=== PATIENT | female | born 1985 | race Caucasian/White ===

== ENCOUNTER 2016-06-23 16:49 | Emergency (ER) | payer OTHER ==
[2016-06-23 17:00] VITALS: BP 132/81; PULSE 70; RESP 16; TEMP 98.2; O2SAT 99
[2016-06-23] MEDS ORDERED: IBUPROFEN 600 MG TAB PO ONE (17:12)
--- NOTE | 2016-06-23 17:13 | EDPHY ---
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 Did not radiate. Not associated with weakness or numbness in legs. She did not fall and now feels better. No urinary symptoms. REVIEW OF SYSTEMS: Negative except as above PAST MEDICAL HISTORY: Depression and hypercholesterolemia Social history: [employer] nurse General Appearance: Alert and conversant, cooperative. No midline spinal tenderness. Some left lumbar paraspinal muscle tenderness. Normal active and passive rotation of the torso. She can bend forward at the waist and touch her toes without obvious discomfort. Straight leg raising negative bilaterally. Bilateral patellar reflexes 2+ symmetric, toes downgoing, extensor hallucis 5/5 bilateral. Emergency Department course/MDM: Patient presents with low back strain without red flags to suggest she is at risk for spinal cord injury or neurologic or neurosurgical emergency or fracture. Request oral ibuprofen. Symptoms are minimal at this time and she has good range of motion on exam and I think it is reasonable for her to return to work as she is requesting. Smoking Status: Former smoker Constitutional: Initial Vital Signs Temperature (C) 36.8 C 06/23/16 16:54 Heart Rate 70 06/23/16 16:54 Respiratory Rate 16 06/23/16 16:54 Blood Pressure 132/81 H 06/23/16 16:54 O2 Sat (%) 99 06/23/16 16:54 O2 Delivery Mode Room Air Allergies/Adverse Reactions: sulfamethoxazole [From Bactrim] Allergy (Mild, Verified 06/23/16 17:00) Anxiety trimethoprim [From Bactrim] Allergy (Mild, Verified 06/23/16 17:00) Anxiety apisole Allergy (Mild, Uncoded 06/23/16 17:00) Hives Home Medications: Medication Instructions Recorded [place] 3,6,9 Combination No.7 06/23/16 MDM/Departure - Depart Disposition: Home, Routine, Self-Care Clinical Impression: Low back strain Qualifiers: Encounter type: initial encounter Qualified Code(s): S39.012A - Strain of muscle, fascia and tendon of lower back, initial encounter Condition: Good Instructions: Low Back Strain (ED) Referrals: Work Comp Ref/Restrictions [Outside] - As per Instructions
== END 2016-06-23 17:23 | disposition home or self-care (01) ==
DX: S39.012A Strain of muscle, fascia and tendon of lower back, initial encounter (principal); Z87.891 Personal history of nicotine dependence; X58.XXXA Exposure to other specified factors, initial encounter; Y92.89 Other specified places as the place of occurrence of the external cause; Y99.0 Civilian activity done for income or pay; Y93.89 Activity, other specified

== ENCOUNTER → 2016-10-14 | Outpatient (CLI) | payer OTHER | LOC: CIMAGING 16:01 | PROVIDERS: ATTEND Internal Medicine | DX: R10.31 Right lower quadrant pain (principal); R10.32 Left lower quadrant pain; R10.813 Right lower quadrant abdominal tenderness; R10.814 Left lower quadrant abdominal tenderness; Q51.818 Other congenital malformations of uterus | CPT/HCPCS: 76856-PO ==

== ENCOUNTER → 2016-11-26 | Outpatient (CLI) | payer OTHER ==
[~2016-11-26] MED LIST: IOPAMIDOL (ISOVUE-300) 100 ML BTL ONE
== END ==
LOC: FIMAGING 09:55
PROVIDERS: ATTEND Internal Medicine
DX: K92.1 Melena (principal); K52.9 Noninfective gastroenteritis and colitis, unspecified; Q51.810 Arcuate uterus; Z87.442 Personal history of urinary calculi
CPT/HCPCS: Q9967

== ENCOUNTER 2017-07-03 19:42 | Emergency (ER) | payer OTHER ==
--- NOTE | 2017-07-03 19:56 | CPEKG ---
Heart Rate: 66 RR Interval: 909 P-R Interval: 156 QRSD Interval: 98 QT Interval: 420 QTC Interval: 441 P Marion: 69 QRS Marion: 72 T Wave Marion: 48 EKG Severity - NORMAL ECG - EKG Impression: SINUS RHYTHM Electronically Signed By: Flor Jamison 03-Jul-2017 22:02:49
[2017-07-03 20:12] LABS: PLATELET COUNT 342 10^3/uL (150-400)
--- NOTE | 2017-07-03 21:11 | EDPHY ---
H & P Stated Complaint: CP, dizziness xfew days - Personal History LMP (Females 10-55): 8-14 Days Ago Current Tetanus/Diphtheria Vaccine: Yes - Medical/Surgical History Hx Asthma: No Hx Chronic Respiratory Disease: No Hx Diabetes: No Hx Cardiac Disease: No Hx Renal Disease: No Hx Cirrhosis: No Hx Alcoholism: No Hx HIV/AIDS: No Hx Splenectomy or Spleen Trauma: No Other PMH: depression, high cholesterol, anxiety - Social History Smoking Status: Former smoker Time Seen by Provider: 07/03/17 19:50 HPI/ROS: Chief complaint: Chest pain History of present illness: This is a 31-year-old female who presents to the emergency department for chest pain. She reports she has had discomfort for the last few days. The pain is in the left, upper aspect of the chest. She has had some associated dizziness. Prior to the onset of the symptoms she had some palpitations. She denies other precipitating factors. She denies alleviating or aggravating factors. She denies other associated signs or symptoms including no cough, no shortness of breath, no pain or swelling in the legs. She is wondering if this is secondary to anxiety. Review of systems: A 10 point review of systems was obtained and other than described above was negative (Ernie Deleon) - Physical Exam Exam: General Appearance: Alert, nontoxic. Eyes: Pupils equal and round no pallor or injection. ENT, Mouth: Mucous membranes moist. Respiratory: There are no retractions, lungs are clear to auscultation. Cardiovascular: Regular rate and rhythm. Gastrointestinal: Abdomen is soft and non tender, no masses, bowel sounds normal. Neurological: Alert and oriented x4. Strength and sensation intact and symmetrical. Skin: Warm and dry, no rashes. Musculoskeletal: Neck is supple non tender. Extremities are symmetrical, full range of motion. Psychiatric: Patient is oriented X 3, there is no agitation. (Ernie Deleon) Constitutional: Initial Vital Signs Temperature (C) 36.6 C 07/03/17 19:45 Heart Rate 69 07/03/17 19:45 Respiratory Rate 18 07/03/17 19:45 Blood Pressure 145/76 H 07/03/17 19:45 O2 Sat (%) 99 07/03/17 19:45 O2 Delivery Mode Room Air Allergies/Adverse Reactions: sulfamethoxazole [From Bactrim] Allergy (Mild, Verified 06/23/16 17:00) Anxiety trimethoprim [From Bactrim] Allergy (Mild, Verified 06/23/16 17:00) Anxiety apisole Allergy (Mild, Uncoded 06/23/16 17:00) Hives Home Medications: Medication Instructions Recorded [place] 3,6,9 Combination No.7 06/23/16 Gabapentin 07/03/17 Prozac 10 MG (*) 07/03/17 Medical Decision Making - Diagnostics Imaging: I viewed and interpreted images myself - Diagnostics Imaging Results: Imaging Impressions Chest X-Ray 07/03/17 19:59 Impression: Normal chest x-ray. ED Course/Re-evaluation: The patient was evaluated and managed by the physician's assistant operator. My cosignature indicates that I reviewed the chart and I agree with the findings and plan of care as documented. I am the secondary supervising physician. ( Flor Jamison) Patient was discussed with my secondary supervising physician Dr. Flor Jamison. Patient presents to the emergency department for chest discomfort. She is nontoxic. Vital signs are stable. Physical exam is benign. Blood studies, EKG and chest x-ray unremarkable. She is PERC negative therefore further evaluation for PE is not pursued. My suspicion for serious underlying pathology is low. I believe she is appropriate for outpatient management. She is discharged home and asked to follow up with her primary care doctor this week for recheck. Strict return precautions are given. The patient voiced understanding and agreement with plan. (Ernie Deleon) Differential Diagnosis: Included but not limited to musculoskeletal pain, GERD, pulmonary infections, pneumothorax, cardiac dysrhythmia, ACS, PE unlikely, she is perc negative (Ernie Deleon) - Data Points Laboratory Results: Laboratory Results 07/03/17 20:00 07/03/17 20:00 07/03/17 07/03/17 07/03/17 20:00 20:00 20:00 WBC 7.33 10^3/uL 10^3/uL (3.80-9.50) RBC 3.96 10^6/uL L 10^6/uL (4.18-5.33) Hgb 11.8 g/dL L g/dL (12.6-16.3) Hct 35.8 % L % (38.0-47.0) MCV 90.4 fL fL (81.5-99.8) MCH 29.8 pg pg (27.9-34.1) MCHC 33.0 g/dL g/dL (32.4-36.7) RDW 12.2 % % (11.5-15.2) Plt Count 342 10^3/uL 10^3/uL (150-400) MPV 9.2 fL fL (8.7-11.7) Neut % (Auto) 53.9 % % (39.3-74.2) Lymph % (Auto) 37.8 % % (15.0-45.0) [place] % (Auto) 6.1 % % (4.5-13.0) Eos % (Auto) 1.4 % % (0.6-7.6) Baso % (Auto) 0.5 % % (0.3-1.7) Nucleat RBC Rel Count 0.0 % % (0.0-0.2) Absolute Neuts (auto) 3.95 10^3/uL 10^3/uL (1.70-6.50) Absolute Lymphs (auto) 2.77 10^3/uL 10^3/uL (1.00-3.00) Absolute Monos (auto) 0.45 10^3/uL 10^3/uL (0.30-0.80) Absolute Eos (auto) 0.10 10^3/uL 10^3/uL (0.03-0.40) Absolute Basos (auto) 0.04 10^3/uL 10^3/uL (0.02-0.10) Absolute Nucleated RBC 0.00 10^3/uL 10^3/uL (0-0.01) Immature Gran % 0.3 % % (0.0-1.1) Immature Gran # 0.02 10^3/uL 10^3/uL (0.00-0.10) Sodium 139 mEq/L mEq/L (135-145) Potassium 3.7 mEq/L mEq/L (3.5-5.2) Chloride 100 mEq/L mEq/L (97-110) Carbon Dioxide 27 mEq/l mEq/l (22-31) Anion Gap 12 mEq/L mEq/L (8-16) BUN 12 mg/dL mg/dL (7-23) Creatinine 0.7 mg/dL mg/dL (0.6-1.0) Estimated GFR > 60 Glucose 83 mg/dL mg/dL (70-100) Calcium 9.3 mg/dL mg/dL (8.5-10.4) Magnesium 1.9 mg/dL mg/dL (1.6-2.3) Troponin I < 0.012 ng/mL ng/mL (0.000-0.034) Beta HCG, Qual NEGATIVE Departure - Departure Disposition: Home, Routine, Self-Care Clinical Impression: Chest pain Qualifiers: Chest pain type: unspecified Qualified Code(s): R07.9 - Chest pain, unspecified Condition: Good Instructions: Chest Pain (ED) Additional Instructions: Follow-up with your primary care doctor in 1-2 days for recheck If symptoms worsen or new symptoms develop return to the emergency room for recheck Referrals: Conchis Martinez MD [Primary Care Provider] - As per Instructions
[2017-07-03 21:58] VITALS: BP 120/75; PULSE 64; RESP 16; TEMP 98.2; O2SAT 99
== END 2017-07-03 22:06 | disposition home or self-care (01) ==
DX: R07.9 Chest pain, unspecified (principal); Z87.891 Personal history of nicotine dependence

== ENCOUNTER 2017-07-24 00:10 | Emergency (ER) | payer OTHER ==
[2017-07-24] MEDS ORDERED: ACETAMINOPHEN 500 MG TAB PO ONE (00:46)
--- NOTE | 2017-07-24 00:46 | EDPHY ---
H & P Stated Complaint: c/o fell skiing yesterday hit back of head, since had ongoing frontal thompson Time Seen by Provider: 07/24/17 00:27 HPI/ROS: Chief Complaint: Head injury, headache HPI: 31-year-old woman was skiing yesterday when she fell and struck the back of her head on ice. She was wearing a helmet. Did not have a loss of consciousness. Initially had a headache but it went away without any treatment. Patient has had worsening headache over the course the day today. Is now 6/10. She has also developed photophobia. No neck pain. No numbness or weakness. Some nausea but no vomiting. No history of headaches in the past. No vision or hearing changes. No confusion. She has not taking any medication for this. ROS: 10 point Review of Systems is negative except as noted in the HPI. PMH: High cholesterol Social History: No smoking, no alcohol, no recreational drug use Family History: non-contributory Physical Exam: Gen: Awake, Alert, Airway Intact HEENT: Head: Atraumatic Eyes: PERRLA, EOMI Nose: No epistaxis Mouth: Normal dentition, Airway patent Face: No deformity Neck: non-tender, no stepoff, Full ROM without pain Chest: non-tender, lungs CTA Heart: normal heart tones Abd: soft, non-tender, atraumatic Pelvis: non-tender, stable to AP and Lateral compression Back: atraumatic, no midline tenderness Ext: atramatic, full ROM Skin: no rash Neuro: CN II-XII intact, Strength 5/5 in all extremities, sensation intact in all extremities - Medical/Surgical History Hx Asthma: No Hx Chronic Respiratory Disease: No Hx Diabetes: No Hx Cardiac Disease: No Hx Renal Disease: No Hx Cirrhosis: No Hx Alcoholism: No Hx HIV/AIDS: No Hx Splenectomy or Spleen Trauma: No Other PMH: depression, high cholesterol, anxiety, herpes, uterine surg - Social History Smoking Status: Former smoker Constitutional: Initial Vital Signs Temperature (C) 36.5 C 07/24/17 00:13 Heart Rate 77 07/24/17 00:13 Respiratory Rate 16 07/24/17 00:13 Blood Pressure 153/85 H 07/24/17 00:13 O2 Sat (%) 98 07/24/17 00:13 O2 Delivery Mode Room Air Allergies/Adverse Reactions: sulfamethoxazole [From Bactrim] Allergy (Mild, Verified 07/24/17 00:18) Anxiety trimethoprim [From Bactrim] Allergy (Mild, Verified 07/24/17 00:18) Anxiety apisole Allergy (Mild, Uncoded 06/23/16 17:00) Hives Home Medications: Medication Instructions Recorded [place] 3,6,9 Combination No.7 06/23/16 Gabapentin 07/03/17 Prozac 10 MG (*) 07/03/17 Medical Decision Making - Diagnostics Imaging Results: CT scan of the head is negative per Dr. Palma Imaging: Discussed imaging studies w/ crew caller Radiologist ED Course/Re-evaluation: 31-year-old woman status post fall and struck her head yesterday. He has had presenting headache. Is not taking any medication for it. CT scan of the head is negative here. Is symptoms consistent with possible mild concussion. Will discharge with follow-up with primary care physician. I feel that over-the- counter analgesics would be appropriate. - Data Points Medications Given: Discontinued Medications Acetaminophen (Tylenol) 1,000 mg PO EDNOW ONE Stop: 07/24/17 00:47 Last Admin: 07/24/17 01:06 Dose: 1,000 mg Departure - Departure Disposition: Home, Routine, Self-Care Clinical Impression: Head injury, Headache Condition: Good Instructions: Head Injury (ED), Acute Headache (ED) Additional Instructions: Follow up with primary care physician in 3-4 days for any concerns. Return to the emergency depart for worsening headache, nausea vomiting, fevers, chills, or any other concerns. Alternate acetaminophen (1000 mg) with ibuprofen (400 mg) every 4 hours as needed for pain. Referrals: Conchis Martinez MD [Primary Care Provider] - As per Instructions
[2017-07-24 01:33] VITALS: BP 137/85
== END 2017-07-24 01:32 | disposition home or self-care (01) ==
DX: S09.90XA Unspecified injury of head, initial encounter (principal); Z87.891 Personal history of nicotine dependence; W00.0XXA Fall on same level due to ice and snow, initial encounter; Y99.8 Other external cause status; Y93.23 Activity, snow (alpine) (downhill) skiing, snowboarding, sledding, tobogganing and snow tubing